=== PATIENT | female | born 1965 | race Caucasian/White ===

== ENCOUNTER → 2018-06-05 | Outpatient (CLI) | payer OTHER ==
--- NOTE | 2018-06-05 15:59 | RAD ---
DATE: 06/05/2018 EXAM: DIGITAL SCREEN BILAT W/CAD HISTORY: Routine screening COMPARISON: Baseline study This study was interpreted with the benefit of Computerized Aided Detection (CAD). Breast Density: SCATTERED The breast parenchyma shows scattered fibroglandular densities. Breast parenchyma level B. FINDINGS: There is a cluster of microcalcifications located just lateral and inferior to the midline of the right breast posteriorly. There is a nodular opacity projected over the left breast laterally on the cc view, not clearly seen in the oblique projection. No other abnormality is evident. IMPRESSION: 1. Right breast microcalcifications. Magnification and straight medial lateral views are suggested for optimal characterization. 2. Lateral left breast nodule. Diagnostic mammograms are suggested to include spot compression and left breast ultrasound if indicated. BI-RADS CATEGORY: 0 INCOMPLETE: NEEDS ADDITIONAL IMAGING EVALUATION AND/OR PRIOR MAMMOGRAMS FOR COMPARISON. RECOMMENDED FOLLOW-UP: ADD ADDITIONAL IMAGING PQRS compliance statement: Patient information was entered into a reminder system with a target due date for the next mammogram. Mammography is a sensitive method for finding small breast cancers, but it does not detect them all and is not a substitute for careful clinical examination. A negative mammogram does not negate a clinically suspicious finding and should not result in delay in biopsying a clinically suspicious abnormality. "Our facility is accredited by the [employer] Mammography Program."
== END | disposition home or self-care (01) ==
LOC: MAMMO 14:44
PROVIDERS: ATTEND Nurse Practitioner Family
DX: Z12.31 Encounter for screening mammogram for malignant neoplasm of breast (principal); N63.20 Unspecified lump in the left breast, unspecified quadrant
CPT/HCPCS: 77067

== ENCOUNTER → 2018-06-20 | Outpatient (CLI) | payer OTHER ==
--- NOTE | 2018-06-20 16:07 | RAD ---
DATE: June 20, 2018 EXAM: DIGITAL DIAGNOSTIC BILATERAL, BREAST BILATERAL SONOGRAPHY HISTORY: Further evaluation of nodular density seen on the left side and further evaluation of calcifications of the right breast seen on screening baseline mammography. COMPARISON: June 05, 2018 This study was interpreted with the benefit of Computerized Aided Detection (CAD). BILATERAL DIAGNOSTIC MAMMOGRAPHY Right side: Magnification digital compression views of the right breast in the CC and MLO projections and a digital 2-D 90 degrees mediolateral view of the right breast were performed. Again seen are calcifications 5 to 6 cm from the nipple located at about the 7:00 position. Calcifications are round and coarse and may represent fat necrosis type calcifications. There is no tight clustering of pleomorphic microcalcifications present. Left side: Focal 2-D compression view of the lateral aspect left breast in CC projection was performed. Nodularity persists. Therefore, 3-D tomosynthesis mammographic views of the left breast were performed. The nodularity persists. A nodule is multilobulated and measures 1.5 cm in size. RIGHT BREAST SONOGRAPHY: High-resolution sonography of the 6-8:00 positions of the right breast was performed. 1 cm from the nipple at the 7:00 position, a small hypoechoic nodule is seen measuring 3.5 mm in size with a thin echogenic capsule. This most likely is benign. At the 7:00 position 6 cm from the nipple, a similar hypoechoic nodule is seen measuring 3.5 mm in size. LEFT BREAST SONOGRAPHY: High-resolution sonography of the lateral half of the left breast was performed. At the 2:00 position 4 cm from the nipple, a complex cyst or complex of cysts is seen measuring 15 mm x 5 mm x 9 mm in size. No internal color flow is seen within it. Thin septations are seen within it. This corresponds to the mammographic finding. This most likely is benign. IMPRESSION: Probable benign calcifications of the right breast. Benign complex cyst of the left breast. Recommend bilateral six-month follow-up mammography and sonography for further evaluation. The mammogram on the right side should include magnification views. BI-RADS CATEGORY: 3 PROBABLE BENIGN-SHORT TERM F/U RECOMMENDED FOLLOW-UP: 6M 6 MONTH FOLLOW-UP PQRS compliance statement: Patient information was entered into a reminder system with a target due date December 18, 2018 for the next mammogram. Mammography is a sensitive method for finding small breast cancers, but it does not detect them all and is not a substitute for careful clinical examination. A negative mammogram does not negate a clinically suspicious finding and should not result in delay in biopsying a clinically suspicious abnormality. "Our facility is accredited by the [employer] Mammography Program."
== END | disposition home or self-care (01) ==
LOC: MAMMO 13:54
PROVIDERS: ATTEND Nurse Practitioner Family
DX: R92.2 Inconclusive mammogram (principal)
CPT/HCPCS: 76641; 77066